=== PATIENT | male | born 1975 | race Asian ===

== ENCOUNTER → 2024-11-29 10:00 | Outpatient (REF) | payer OTHER, SELFPAY ==
--- NOTE | 2024-11-29 | HM_ITS ---
Conclusion: 1. Patient was monitored for total period of 2 days 2. Baseline rhythm is normal sinus rhythm with average heart of 105 beats per minute in the tachycardic side 3. Patient was 1 prolonged episode of narrow complex tachycardia at 02:13 lasting for 1 hour and 58 minutes going at 218 beats per minute could represent SVT. 4. Frequent PACs noted with total burden of 4.5% 5. Patient marked the counter of multiple times, at TS for with symptoms of palpitations correlating with isolated PACs MTDD
== END ==
LOC: HO.CARD 10:00
PROVIDERS: Visit Provider Physician Assistant
DX: R00.2 Palpitations (principal)
CPT/HCPCS: 93225

== ENCOUNTER → 2024-11-29 10:00 | Outpatient (BNV) | payer OTHER, SELFPAY | PROVIDERS: Visit Provider Internal Medicine Cardiovascular Disease | DX: R00.0 Tachycardia, unspecified (principal) | CPT/HCPCS: 93227 ==

== ENCOUNTER 2024-12-20 14:06 | Outpatient (AMB) | payer OTHER, SELFPAY ==
--- NOTE | 2024-12-20 14:13 | MHC.OFFVIS ---
Vital Signs 12/20/24 14:14 Height 5 ft 10 in Weight 189 lb 9.561 oz BMI 27.2 BP 120/78 Blood Pressure Location Lt brachial Position Sitting Pulse 61 Intake Visit Reasons: new patient palpitations Intake Note: New patient c/o palpitations feeling better since starting metoprolol Roll Form Operator Required: No Allergies No Known Allergies Allergy (Verified 12/20/24 14:17) HPI Comments Details: Thank you for referring Dwight in cardiology consultation today for cardiac arrhythmias. He is a pleasant 49-year-old [place] male who is very active. The last many years he has been getting symptoms of allergies during the springtime with itchy eyes. During the fall time while he was raking usually gets short of breath and was felt to be bronchospastic airway disease probably due to allergy and has been prescribed inhalers. Usually during wintertime he feels well. However over the last few years he has also been noticing symptoms of fluttering in his chest less palpitations usually in the upper part of his chest which are not that bothersome however this winter he started noticing the symptoms were more frequent. 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 He said he was had some increased stress although he did not think so. He has been also drinking caffeine about 3-4 cups as well as some alcohol 2 or 3 beers once or twice a week. He said he started noticing more and more frequent PACs and these are very symptomatic. He did initially go to the primary care physician in the EKG was normal however he continued to have symptoms and then had a revisit which time he was noted to have irregular pulse and subsequently underwent a Holter monitor which showed frequent isolated PACs which was symptomatic with his symptoms. However he also was noted to have very rapid narrow complex tachycardia most consistent with SVT and at that time he said he was sleeping. Following the Holter monitor before he was started on metoprolol he said he had another episode of fast heart rate in the afternoon time while he was awake. He did not feel well he felt weak and dizzy. However since been started on metoprolol he has not had any rapid heart rate in his symptoms of fluttering/palpitations have improved as well and have been more muted. He has also been told to cut down his caffeine and alcohol intake which he is trying to do. He denies any significant exertional chest pain or shortness of breath. He is concerned about his arrhythmias. [facility] Surgical History Hx of colonoscopy Family History Father PFO with atrial septal aneurysm Colon cancer Mother No problems noted. Social History Patient Tobacco Use Status: Never used Tobacco Review of Systems Const Denies chills, Denies daytime sleepiness, Denies fatigue, Denies fever(s), Denies frequent falls, Denies poor appetite, Denies snoring, Denies stops breathing during sleep, Denies weakness, Denies weight gain and Denies weight loss Eyes Denies loss of vision ENT Denies dizziness and Denies hearing loss Card Denies chest pain, Denies claudication, Denies leg edema, Denies lightheadedness, Denies palpitations, Denies dyspnea, Denies dyspnea on exertion and Denies orthopnea Resp Denies cough, Denies excessive phlegm production, Denies dyspnea, Denies dyspnea on exertion, Denies snoring and Denies wheezing GI Denies abdominal pain, Denies hematochezia, Denies change in bowel habits, Denies nausea and Denies vomiting Denies dysuria and Denies urinary frequency Musc Denies arthralgias, Denies muscle weakness, Denies numbness and Denies other (frequent falls) Skin/Breast Denies nail changes and Denies rash Neuro Denies Abnormal speech present, Denies dizziness, Denies frequent falls, Denies loss of vision, Denies memory loss, Denies numbness and Denies weakness Psych Denies depression and Denies memory loss Endo Denies fatigue and Denies palpitations Siddharth/Lymph Reports easy bruising and Reports other (anemia) Aller/Immun Denies wheezing Physical Exam Vital Signs: Last Vital Signs Pulse 61 12/20/24 14:14 BP 120/78 12/20/24 14:14 BMI result Body Mass Index 27.2 Const General: cooperative, comfortable, no acute distress, well developed, alert, awake, Physically active and well groomed Nutritional Appearance: average body habitus and well nourished Orientation/consciousness: patient oriented x3 Limitations: no limitations HEENT Head: Yes normocephalic and Yes atraumatic Neck Neck: Yes trachea midline, Yes supple and Yes no JVD Resp Effort & Inspection: normal respiratory effort Auscultation: clear to auscultation bilaterally Cardio Jugular venous distension: no JVD Palpation: normal PMI Rate: regular rate Rhythm: regular rhythm Heart sounds: S1 normal heart sound present, S2 normal heart sound present, no click, no gallops, no murmurs and no rubs GI Auscultation: normal bowel sounds Skin General skin exam: no rashes or lesions noted Neuro General: patient oriented x3 and no focal motor deficits Speech: No Abnormal speech present Extrem General: Yes no clubbing, cyanosis or edema Psych Appearance: grossly normal Office Procedures EKG Details: EKG shows normal sinus rhythm with normal EKG [id number], Complete Assessment & Plan Assessment & Plan (1) Cardiac arrhythmia: Code(s): I49.9 - Cardiac arrhythmia, unspecified Category: Medical Plan: Patient was symptomatic cardiac arrhythmias with both kind of symptoms with fluttering in his chest related to PACs as well as fast heart rate consistent with SVT. His Holter monitor had shown very fast narrow complex tachycardia consistent with SVT although at that time he was asymptomatic while he was sleeping with a very prolonged episode. Since then he has 1 more episode which has not recurred on metoprolol therapy. I had a very detailed discussion about pathophysiology of cardiac arrhythmias including PACs and SVT. At this point time his symptoms have improved on metoprolol therapy in his PACs symptoms have been mitigated. We discussed overall benign nature of PACs. Management was discussed in details. Avoidance of significant stimulants such as caffeine and alcohol was discussed. He understands agrees and will try to taper it out. We also discussed about stress mitigation strategies given his 2 jobs and possibly lack of sleep that may make and promote cardiac arrhythmias. He understands. Stress mitigation strategies to be pursued. For now continue metoprolol therapy. Will obtain echocardiogram to evaluate for any structural abnormalities with the heart. This will be scheduled in near future. If his symptoms are not completely mitigated will uptitrate metoprolol therapy and/or from SVT perspective can pursue ablation. Vagal maneuvers were discussed. Will also obtain a Holter monitor in about a month's time. Will follow up in the clinic in 6 months time, sooner p.r.n.. Thank you for allowing me to partake in his care Coding Level of Care Code New Pt Level 4 (59535) Complex EM visit Add On G2211 Diagnoses Cardiac arrhythmia I49.9 CPT Codes EKG - CPT: 04794-[id number], Complete ([id number])
[2024-12-20 14:14] VITALS: BP 120/78; PULSE 61; BMI 27.2
== END 2024-12-20 14:51 | disposition home or self-care (01) ==
PROVIDERS: Visit Provider Internal Medicine Cardiovascular Disease
DX: I49.9 Cardiac arrhythmia, unspecified (principal)
CPT/HCPCS: 93010; 99214

== ENCOUNTER → 2024-12-20 14:06 | Outpatient (BNVA) | payer OTHER, SELFPAY | PROVIDERS: Visit Provider Internal Medicine Cardiovascular Disease | DX: I49.9 Cardiac arrhythmia, unspecified (principal) | CPT/HCPCS: 93005 ==

== ENCOUNTER → 2025-01-15 10:58 | Outpatient (REF) | payer OTHER, SELFPAY ==
--- NOTE | 2025-01-15 11:01 | CA_ITS ---
Transthoracic Echocardiogram Patient (Last, First, Middle): Dwight Mariano, Gender: Male Date of : 1975 Age: 49 Procedure Date: 01/15/2025 Procedure Type: Transthoracic Echocardiogram Location: OP Height: 177. cm Weight: 83.92 kg BSA: 2.01 m2 Heart Rate: 56 bpm BP: 100 / 60 mmHg Chief Minister: YANELY Referring MD: Isacc Aguilar MD Disaster Recovery Consultant: Isacc Aguilar MD Symptoms: I49.9 - Cardiac arrhythmia, unspecified Study Quality: Adequate ECG Rhythm: Sinus Conclusions: - Essentially normal study Findings Left Ventricle Normal left ventricular size, thickness, and systolic function. The visually estimated ejection fraction is between 60-65%. Spectral Doppler is indicative of a normal filling pattern. Right Ventricle Normal right ventricular cavity size and systolic function. Atria Both atria are normal in size. There is lipomatous hypertrophy of the interatrial septum. There is no evidence of interatrial shunt. Aortic Valve Normal aortic valve structure and function. There is no aortic valve stenosis. There is no aortic valve regurgitation. Mitral Valve Normal mitral valve structure and function. There is trace mitral valve regurgitation. There is no mitral valve stenosis. Pulmonic Valve The pulmonic valve is likely normal. There is trace pulmonic valve regurgitation. Tricuspid Valve Normal tricuspid valve structure. Tricuspid regurgitation envelope is inadequate for calculation of right ventricular systolic pressure. Normal right atrial pressure. Great Vessels All visible segments of the aorta are normal in size. The pulmonary artery was not well visualized. Venous The inferior vena cava is normal in size and collapses greater than 50% with inspiration. Pericardium/Pleural There is no evidence of pericardial effusion. Prior Study Comparison No prior study available for comparison. Measurements 2D Linear Measurements IVSd: 0.98 0.6-0.9/0.6-1.0 cm LVIDd: 5.32 3.9-5.3/4.2-5.9 cm LVIDd Index: 2.65 2.4-3.2/2.2-3.1 cm/m2 LVIDs: 3.11 2.0-3.6 cm LVPWd: 0.96 0.7-1.1 cm LA Diam: 3.90 2.7-3.8/3.0-4.0 cm LAIDs Index: 1.94 1.5-2.3 cm/m2 LV Mass: 240.39 67-162/88-224 g LV Mass Index: 119.60 43-95/49-115 g/m2 LVOT Diam: 2.20 3.0+(-)1.3 cm 2D Systolic Function EF 4C: 54.30 >55% EF 2C: 69.70 >55% EF BiP: 63.60 >55% Mitral Valve MV Pk E: 0.91 MV PK A: 0.61 MV Decel Time: 248.00 E/A: 1.50 E'Lateral: 10.40 E'Medial: 7.29 E/E' Med: 12.50 E/E' Lat: 8.70 PHT: 73.00 MVA PHT: 3.01 Decel [place]: 3.67 Aortic Valve AoV Pk Roberto: 1.31 AoV Mn Roberto: 0.94 AoV VTI: 0.29 AoV Pk Grad: 7.00 Aov Mn Grad: 4.00 KRUNAL Cont.VTI: 3.04 LVOT LVOT Pk Roberto: 1.02 LVOT Mn Roberto: 0.77 LVOT VTI: 0.24 LVOT Pk Grad: 4.00 LVOT Mn Grad: 3.00 LVOT Diam: 2.20 LVOT Area: 3.80 Diastolic Function MV Pk E: 0.91 MV Pk A: 0.61 E/A: 1.50 E'Medial: 7.29 E/E' Med: 12.50 E' Laterial: 10.40 E/E' Lat: 8.70 Right Ventricle TAPSE (mm): 24.00 TVS' Roberto: 13.40 Tricuspid Valve TR Pk Roberto: 1.63 TR Pk Grad: 11.00 Great Vessels Aorta Sinus of Valsalva: 3.50 2.0-3.5 cm Ao Asc: 3.00 2.1-3.4 cm Ao Arch: 2.50 Pulmonary Valve PV Pk Roberto: 0.95 Peak PV Grad: 4.00 Updated in Other Vendor System with Status of Final Isacc Aguilar MD electronically signed on 01/15/2025 5:57:03 PM with status of Final
== END ==
LOC: HO.CARD 10:58
PROVIDERS: PCP Physician Assistant; Visit Provider Internal Medicine Cardiovascular Disease
DX: I49.9 Cardiac arrhythmia, unspecified (principal)
CPT/HCPCS: 93242; 93306

== ENCOUNTER → 2025-01-15 11:01 | Outpatient (BNV) | payer OTHER, SELFPAY | PROVIDERS: PCP Physician Assistant; Visit Provider Internal Medicine Cardiovascular Disease | DX: R94.31 Abnormal electrocardiogram [ECG] [EKG] (principal) | CPT/HCPCS: 93306 ==

== ENCOUNTER 2025-06-27 08:31 | Outpatient (AMB) | payer OTHER, SELFPAY ==
[2025-06-27 08:43] VITALS: BP 110/66; PULSE 59; BMI 27.2
--- NOTE | 2025-06-27 08:43 | A.OFFVIS_ITS ---
Vital Signs 06/27/25 08:43 Height 5 ft 10 in Weight 189 lb 9.561 oz BMI 27.2 BP 110/66 Blood Pressure Location Lt brachial Position Sitting Pulse 59 Intake Visit Reasons: 6m follow up/holter /echo Intake Note: 6 month follow-up after echo and holter feeling good System Support Specialist Required: No Allergies No Known Allergies Allergy (Verified 12/20/24 14:17) Medication List - Last Reconciled 06/27/25 by Isacc Aguilar MD metoprolol succinate ER 25 mg PO DAILY HPI Comments Details: Dwight comes for follow-up. He has been doing well on metoprolol therapy. He says his symptoms of palpitations have significantly improved and feels better although he still feels some sensation but does not as severe as when he is feeling a lot fall. Holter monitor shows rare PACs and PVCs with symptoms associated with PACs and PVCs. He has no exertional symptoms of chest pain or shortness of breath. He said he has significant amount of stress related to 2 jobs that he is doing currently. However with exertion he denies any shortness of breath. Denies any orthopnea, PND, while Dag edema. Denies any lightheadedness, syncope. [facility] Surgical History Hx of colonoscopy Family History Father PFO with atrial septal aneurysm Colon cancer Mother No problems noted. Social History Patient Tobacco Use Status: Never used Tobacco Review of Systems Const Denies chills, Denies fatigue, Denies fever(s), Denies frequent falls, Denies weakness, Denies weight gain and Denies weight loss ENT Denies dizziness Card Denies chest pain, Denies leg edema, Denies lightheadedness, Denies palpitati ons, Denies dyspnea, Denies dyspnea on exertion, Denies orthopnea and Denies other (loss of consciousness) Resp Denies cough, Denies dyspnea and Denies dyspnea on exertion GI Denies hematochezia and Denies change in stool character Musc Denies abnormal gait, Denies muscle weakness, Denies numbness, Denies radiating pain into limb and Denies tingling Neuro Denies Abnormal speech present, Denies abnormal gait, Denies dizziness, Denies frequent falls, Denies numbness, Denies tingling and Denies weakness Endo Denies fatigue and Denies palpitations Physical Exam Vital Signs: Last Vital Signs Pulse 59 06/27/25 08:43 BP 110/66 06/27/25 08:43 BMI result Body Mass Index 27.2 Const General: cooperative, comfortable, no acute distress, well developed, alert, aw alison, Physically active and well groomed Nutritional Appearance: average body habitus and well nourished Orientation/consciousness: patient oriented x3 Limitations: no limitations HEENT Head: Yes normocephalic and Yes atraumatic Neck Neck: Yes trachea midline, Yes supple and Yes no JVD Resp Effort & Inspection: normal respiratory effort Auscultation: clear to auscultation bilaterally Cardio Jugular venous distension: no JVD Palpation: normal PMI Rate: regular rate Rhythm: regular rhythm Heart sounds: S1 normal heart sound present, S2 normal heart sound present, no click, no gallops, no murmurs and no rubs GI Auscultation: normal bowel sounds Skin General skin exam: no rashes or lesions noted Neuro General: patient oriented x3 and no focal motor deficits Speech: No Abnormal speech present Extrem General: Yes no clubbing, cyanosis or edema Psych Appearance: grossly normal Assessment & Plan Assessment & Plan (1) Cardiac arrhythmia: Code(s): I49.9 - Cardiac arrhythmia, unspecified Category: Medical Plan: Cardiac arrhythmias with isolated PACs and PVCs. He is very symptomatic with it. His symptoms have significantly improved on metoprolol therapy and he wants to continue with metoprolol therapy till next spring as he is anticipating increased stress during the fall in the wintertime. He said then he would like to taper of the metoprolol therapy which is appropriate. We discussed about stress mitigation strategies and participating in behavioral therapy that will help reduce his stress. Also advised to avoid stimulants. He understands and agrees. Overall benign nature of isolated PACs and PVCs was discussed. (2) Hyperlipidemia: Code(s): E78.5 - Hyperlipidemia, unspecified Category: Medical Plan: Mild hyperlipidemia with good total cholesterol above 200. Given his age and hyperlipidemia would suggest a coronary calcium score to assess for presence of coronary atherosclerosis that may guide further treatment as well as prognosis. This was discussed with him in details. He understands agrees and will follow up with that. Otherwise will follow up with him in the clinic in 1 year's time, sooner PRN. Thank you for allowing me to partake in his care Orders: Orders CT Coronary Calcium Score 1 Week E78.5 - Hyperlipidemia, unspecified, I49.9 - Cardiac arrhythmia, unspecified Coding Level of Care Code Est Pt Level 4 (34847) Complex EM visit Add On G2211 Diagnoses Cardiac arrhythmia I49.9 Hyperlipidemia E78.5
--- OUTSIDE RECORDS SUMMARY | 2025-06-27 08:44 | XMS_ITS | Patient Health Record ---
Author Organization [facility] Address [address] [address] Care Team Providers Care Breast Trimmer Name Role Phone MITCHELL ARGUELLES Primary Care Provider Allergies Allergen (clinical drug ingredient) Drug/Non Drug Allergy documented on EMR Reaction Allergy Type Onset Date Status tree (uncoded) Unknown Allergy Activ e Reason For Referral No Information Medications Medication SIG (Take, Route, Frequency, Duration) Notes Start Date End Date Status Metoprolol Succinate ER 25 MG 1 tablet Orally Once a day A ctive Problems Problem Type SNOMED Code ICD Code Onset Dates Problem Status W/U Status Risk Notes Problem Cardiac arrhythmia ([id number]) Cardiac arrhythmia, unspecified (I49.9) Active confirmed Vital Signs Heart Rate 76 /min 06/13/2025 Temperature 96.7 degrees Fahrenheit 06/13/2025 Blood pressure diastolic 72 mm Hg 06/13/2025 Oximetry 97 % 06/13/2025 Height 5'10'' in 06/13/2025 Blood pressure systolic 110 mm Hg 06/13/2025 Weight 185.2 lbs 06/13/2025 BMI 26.57 kg/m2 06/13/2025 Encounters Encounter Location Date Provider Diagnosis [facility] [address] [facility] [address] [place] [address] 06/13/2025 MITCHELL ARGUELLES Cardiac arrhythmia, unspecified I49.9 ; Encounter for screening for malignant neoplasm of prostate Z12.5 and Family history of colon cancer Z80.0 [facility] [address] [facility] [address] [place] [address] 06/13/2025 MITCHELL ARGUELLES Assessments Encounter Date Diagnosis (ICD Code) Assessment Notes Treatment Notes Treatment Clinical Notes Section Notes 06/13/2025 Encounter for screening for malignant neoplasm of prostate (ICD-10 - Z12.5) Mr. Mariano is 49 years old gentleman with premature ventricular contraction, hemorrhoidectomy, strong family history of colon cancer is here today to establish care. Plan is as follows. Supraventricular tachycardia/prematu re ventricular contractions. He is stable on metoprolol ER 25 mg 1 tablet daily and he follows up with washtub worker helper Dr. Gonzalez at [facility]. Family history of colon cancer. Patient is not sure about his last colonoscopy and it was done at [place] by Dr. Garcia. We will try to retrieve records and patient will also call to check on his next colonoscopy. He is on 5 year cycle. Screening blood work ordered before next appointment 06/13/2025 Cardiac arrhythmia, unspecified (ICD-10 - I49.9) Mr. Mariano is 49 years old gentleman with premature ventricular contraction, hemorrhoidectomy, strong family history of colon cancer is here today to establish care. Plan is as follows. Supraventricular tachycardia/prematu re ventricular contractions. He is stable on metoprolol ER 25 mg 1 tablet daily and he follows up with washtub worker helper Dr. Gonzalez at [facility]. Family history of colon cancer. Patient is not sure about his last colonoscopy and it was done at [facility] by Dr. Garcia. We will try to retrieve records and patient will also call to check on his next colonoscopy. He is on 5 year cycle. Screening blood work ordered before next appointment 06/13/2025 Family history of colon cancer (ICD-10 - Z80.0) Mr. Mariano is 49 years old gentleman with premature ventricular contraction, hemorrhoidectomy, strong family history of colon cancer is here today to establish care. Plan is as follows. Supraventricular tachycardia/prematu re ventricular contractions. He is stable on metoprolol ER 25 mg 1 tablet daily and he follows up with washtub worker helper Dr. Gonzalez at [facility]. Family history of colon cancer. Patient is not sure about his last colonoscopy and it was done at [place] by Dr. Garcia. We will try to retrieve records and patient will also call to check on his next colonoscopy. He is on 5 year cycle. Screening blood work ordered before next appointment Plan Of Treatment Pending Test Test Name Order Date Lipid Panel-[id number] 06/13/2025 Comp. Metabolic Panel (14)-[id number] 2024 PSA (Serial Monitor)-[id number] 06/13/2025 Next Appt Details Provider Name:MITCHELL ARGUELLES , 09/10/2025 11:00:00 AM, [address] [place] [address], [id number], Insurance Providers Payer Name Payer Address Payer Phone Subscriber Number Group Number Insured Name Patient Relationship to Insured Coverage Start Date Coverage End Date [facility] ([facility] [address] [place] [id number] Dwight Mariano Self - patient is the insured Medical (General) History Medical History History ICD Code supraventricular tachycardia/premature v entricular contractions Surgical History Surgery Date(Month/Year) hemorrhoidectomy
== END 2025-06-27 09:08 | disposition home or self-care (01) ==
LOC: HO.HCS 08:32
PROVIDERS: Visit Provider Internal Medicine Cardiovascular Disease
DX: I49.9 Cardiac arrhythmia, unspecified (principal); E78.5 Hyperlipidemia, unspecified
CPT/HCPCS: 99214